=== PATIENT | male | born 2000 | race Caucasian/White ===

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

== ENCOUNTER 2022-06-19 16:22 | Emergency (ER) | payer OTHER ==
[2022-06-19 19:39] LABS: BASOPHIL 0.3 % (0-2); EOSINOPHIL 0.8 % (0-5); HCT 47.4 % (42.0-52.0); LYMPHOCYTE 17.2 % (15-48); MCH 31.1 pg (25.0-31.0); MCHC 33.8 g/dL (32.0-36.0); MONOCYTE 4.9 % (0-12); MPV 11.8 fL (6.0-9.5); NEUTROPHIL 76.6 % (41-80); NRBC 0; PLT 170 K/uL (150-400); RBC 5.15 M/uL (4.70-6.00); WBC 8.9 K/uL (4.0-10.5)
[2022-06-19 20:01] LABS: BUN/CREAT RATIO (CALC) 16.5 RATIO; CREATININE 0.91 mg/dL (0.67-1.17); POTASSIUM 4.1 mmol/L (3.5-5.1)
== END 2022-06-19 20:43 | disposition home or self-care (01) ==
LOC: FER 16:22
PROVIDERS: Nurse Practitioner Family
DX: G43.909 Migraine, unspecified, not intractable, without status migrainosus (principal)
CPT/HCPCS: 36415; 80048; 85025; J1100; J1885; J2405; J7030